=== PATIENT | female | born 1980 | race Caucasian/White ===

== ENCOUNTER 2018-10-14 18:17 | Inpatient (IN) | payer MEDICAID ==
[2018-10-14] MEDS ORDERED: MAGNESIUM SULFATE 4 GM/100 ML 100 ML (19:45)
[2018-10-14] MEDS ORDERED: CA GLUCONATE (GM) 10% 10ML INJ IV (20:00)
[2018-10-14] MEDS ORDERED: NACL 0.9% 3 ML SYG IV (20:00)
[2018-10-14] MEDS: MAGNESIUM SULFATE 4 GM/100 ML 100 ML IV (20:02)
[2018-10-14] MEDS: LACTATED RINGER'S 1,000 ML IV (20:04)
[2018-10-14] MEDS: MAGNESIUM SULFATE 20 GM/500 ML 500 ML IV (20:28)
[2018-10-14 20:29] LABS: ADD MAN DIFF? NO
[2018-10-14 20:33] LABS: WHITE BLOOD COUNT 10.1 10^3/ul (4.8-10.8)
[2018-10-14 20:33] LABS: ABNORMAL IP MESSAGE 1; BASOPHILS % 0.3 % (0.0-2.0); EOSINOPHILS # 0.2 10^3/ul (0.0-0.5); EOSINOPHILS % 1.5 % (0.0-7.0); HEMATOCRIT 31.2 % (37.0-47.0); HEMOGLOBIN 10.6 g/dl (12.0-16.0); LYMPHOCYTES % 20.1 % (15.0-51.0); MEAN CORPUSCULAR HEMOGLOBIN 29.5 pg (29.0-33.0); MEAN CORPUSCULAR VOLUME 86.9 fl (82.0-101.0); MEAN PLATELET VOLUME 13.3 fl (7.4-10.4); MONOCYTE # 0.8 10^3/ul (0.3-0.9); MONOCYTES % 7.8 % (0.0-11.0); NEUTROPHIL # 7.1 10^3/ul (1.6-7.5); NEUTROPHILS % 69.6 % (39.0-77.0); PLATELET COUNT 153 10^3/UL (140-415); RED BLOOD COUNT 3.59 10^6/ul (4.20-5.40); RED CELL DISTRIBUTION WIDTH 13.2 % (11.5-14.5)
[2018-10-14] MEDS: LABETALOL HCL 20MG INJ IV ×3 (20:34→21:12)
[2018-10-14 20:35] LABS: POSITIVE DIFF @See below
[2018-10-14] MEDS: BETAMET NA PHOS/AC(6 MG/ML) 2 ML INJ SYG IM (20:38)
[2018-10-14 20:50] LABS: ADD UMIC YES; UR ASCORBIC ACID NEGATIVE (NEGATIVE); UR BACTERIA FEW /HPF (NONE SEEN); UR BILIRUBIN (Dip) NEGATIVE (NEGATIVE); UR BLOOD (Dip) 1+ mg/dL (NEGATIVE); UR CLARITY CLOUDY (CLEAR); UR COLOR AMBER (YELLOW); UR GLUCOSE (Dip) 1+ mg/dL (NEGATIVE); UR KETONES (Dip) NEGATIVE (NEGATIVE); UR LEUKOCYTE ESTERASE (Dip) NEGATIVE Leu/ul (NEGATIVE); UR MUCUS FEW /HPF (NONE SEEN); UR NITRITE (Dip) NEGATIVE (NEGATIVE); UR NONSQUAMOUS EPITHELIAL CELL 1 /HPF (NONE SEEN); UR RBC 4 /HPF (0-5); UR SQUAMOUS EPITHELIAL CELL MANY /HPF (FEW); UR TOTAL PROTEIN (Dip) 3+ mg/dl (NEGATIVE); UR UROBILINOGEN (Dip) 1+ mg/dL (NEGATIVE); UR WBC 10 /HPF (0-5)
[2018-10-14 20:51] LABS: ALANINE AMINOTRANSFERASE 41 IU/L (13-69); ALBUMIN 2.7 g/dl (3.3-4.9); ALBUMIN/GLOBULIN RATIO 0.84; ALKALINE PHOSPHATASE 254 IU/L (42-121); ANION GAP 6 (5-13); ASPARTATE AMINO TRANSFERASE 42 IU/L (15-46); BILIRUBIN,INDIRECT 0.9 mg/dl (0-1.1); BILIRUBIN,TOTAL 0.9 mg/dl (0.2-1.3); BLOOD UREA NITROGEN 21 mg/dl (7-20); CALCIUM 8.3 mg/dl (8.4-10.2); CARBON DIOXIDE 21 mmol/L (21-31); CHLORIDE 104 mmol/L (97-110); Estimated GFR 50 mL/min (>60); GLUCOSE 83 mg/dl (70-220); POTASSIUM 4.4 mmol/L (3.5-5.1); SODIUM 131 mmol/L (135-144); TOTAL PROTEIN 5.9 g/dl (6.1-8.1); URIC ACID 8.3 mg/dl (3.1-7.9)
[2018-10-14 20:54] LABS: INR 0.83; PROTIME 11.5 Sec (11.9-14.9); PT RATIO 0.9
[2018-10-14 20:55] LABS: PARTIAL THROMBOPLASTIN TIME 30.4 Sec (23.0-35.0)
[2018-10-14 20:57] LABS: ALANINE AMINOTRANSFERASE 52 IU/L (13-69); ALBUMIN 2.4 g/dl (3.3-4.9); ALKALINE PHOSPHATASE 261 IU/L (42-121); ANION GAP 6 (5-13); ASPARTATE AMINO TRANSFERASE 43 IU/L (15-46); BLOOD UREA NITROGEN 21 mg/dl (7-20); CALCIUM 8.3 mg/dl (8.4-10.2); CARBON DIOXIDE 21 mmol/L (21-31); CHLORIDE 104 mmol/L (97-110); CREATININE 1.15 mg/dl (0.44-1.00); GLUCOSE 78 mg/dl (70-220); LACTATE DEHYDROGENASE 944 IU/L (313-618); PHOSPHORUS 5.8 mg/dl (2.5-4.9); POTASSIUM 4.5 mmol/L (3.5-5.1); SODIUM 131 mmol/L (135-144); TOTAL PROTEIN 5.2 g/dl (6.1-8.1)
[2018-10-14] MEDS: ONDANSETRON 4 MG INJ IV (21:59)
[2018-10-14] MEDS ORDERED: hydrALAzine 20 MG INJ IV (22:00)
[2018-10-14] MEDS ORDERED: LABETALOL HCL 20MG INJ IV ×2 (22:00)
[2018-10-14 23:34] LABS: MAGNESIUM 5.2 mg/dl (1.7-2.5)
[2018-10-15 00:43] LABS: ADD MAN DIFF? NO
[2018-10-15 00:50] LABS: WHITE BLOOD COUNT 12.1 10^3/ul (4.8-10.8)
[2018-10-15 00:50] LABS: ABNORMAL IP MESSAGE 1; BASOPHILS % 0.3 % (0.0-2.0); EOSINOPHILS % 0.2 % (0.0-7.0); HEMATOCRIT 31.7 % (37.0-47.0); HEMOGLOBIN 10.7 g/dl (12.0-16.0); LYMPHOCYTES # 1.3 10^3/ul (0.8-2.9); LYMPHOCYTES % 10.9 % (15.0-51.0); MEAN CORPUSCULAR HEMOGLOBIN 29.5 pg (29.0-33.0); MEAN CORPUSCULAR HGB CONC 33.8 g/dl (32.0-37.0); MEAN CORPUSCULAR VOLUME 87.3 fl (82.0-101.0); MEAN PLATELET VOLUME 13.1 fl (7.4-10.4); MONOCYTE # 0.3 10^3/ul (0.3-0.9); MONOCYTES % 2.4 % (0.0-11.0); NEUTROPHIL # 10.2 10^3/ul (1.6-7.5); NEUTROPHILS % 84.9 % (39.0-77.0); NUCLEATED RED BLOOD CELLS% 0.2 /100WBC (0.0-0.0); PLATELET COUNT 157 10^3/UL (140-415); POSITIVE DIFF @See below; RED BLOOD COUNT 3.63 10^6/ul (4.20-5.40); RED CELL DISTRIBUTION WIDTH 13.2 % (11.5-14.5)
[2018-10-15 01:16] LABS: ALANINE AMINOTRANSFERASE 59 IU/L (13-69); ALBUMIN 2.5 g/dl (3.3-4.9); ALBUMIN/GLOBULIN RATIO 0.75; ALKALINE PHOSPHATASE 296 IU/L (42-121); ANION GAP 5 (5-13); ASPARTATE AMINO TRANSFERASE 52 IU/L (15-46); BLOOD UREA NITROGEN 21 mg/dl (7-20); CALCIUM 8.1 mg/dl (8.4-10.2); CARBON DIOXIDE 20 mmol/L (21-31); CHLORIDE 104 mmol/L (97-110); CREATININE 1.16 mg/dl (0.44-1.00); Estimated GFR 52 mL/min (>60); GLUCOSE 109 mg/dl (70-220); POTASSIUM 4.4 mmol/L (3.5-5.1); SODIUM 129 mmol/L (135-144); TOTAL PROTEIN 5.8 g/dl (6.1-8.1); URIC ACID 8.5 mg/dl (3.1-7.9)
[2018-10-15 01:24] LABS: MAGNESIUM 5.6 mg/dl (1.7-2.5)
[2018-10-15] MEDS: DIPHENHYDRAMINE 50 MG CAP PO (01:28)
[2018-10-15] MEDS: ACETAMINOPHEN 500 MG TAB PO (01:28)
[2018-10-15] MEDS: LACTATED RINGER'S 1,000 ML IV ×2 (01:40→15:32)
[2018-10-15 04:12] LABS: ADD MAN DIFF? NO
[2018-10-15 04:13] LABS: WHITE BLOOD COUNT 12.2 10^3/ul (4.8-10.8)
[2018-10-15 04:13] LABS: BASOPHILS % 0.2 % (0.0-2.0); EOSINOPHILS % 0.1 % (0.0-7.0); HEMOGLOBIN 10.7 g/dl (12.0-16.0); LYMPHOCYTES # 1.1 10^3/ul (0.8-2.9); LYMPHOCYTES % 9.2 % (15.0-51.0); MEAN CORPUSCULAR HEMOGLOBIN 29.2 pg (29.0-33.0); MEAN CORPUSCULAR HGB CONC 33.4 g/dl (32.0-37.0); MEAN CORPUSCULAR VOLUME 87.2 fl (82.0-101.0); MEAN PLATELET VOLUME 12.8 fl (7.4-10.4); MONOCYTE # 0.1 10^3/ul (0.3-0.9); NEUTROPHIL # 10.8 10^3/ul (1.6-7.5); NEUTROPHILS % 87.9 % (39.0-77.0); NUCLEATED RED BLOOD CELLS% 0.2 /100WBC (0.0-0.0); PLATELET COUNT 151 10^3/UL (140-415); RED BLOOD COUNT 3.67 10^6/ul (4.20-5.40); RED CELL DISTRIBUTION WIDTH 13.2 % (11.5-14.5)
[2018-10-15 04:31] LABS: ALANINE AMINOTRANSFERASE 57 IU/L (13-69); ALBUMIN 2.8 g/dl (3.3-4.9); ALKALINE PHOSPHATASE 289 IU/L (42-121); ANION GAP 7 (5-13); ASPARTATE AMINO TRANSFERASE 51 IU/L (15-46); BILIRUBIN,INDIRECT 0.9 mg/dl (0-1.1); BILIRUBIN,TOTAL 0.9 mg/dl (0.2-1.3); BLOOD UREA NITROGEN 22 mg/dl (7-20); CARBON DIOXIDE 18 mmol/L (21-31); CHLORIDE 105 mmol/L (97-110); CREATININE 1.23 mg/dl (0.44-1.00); Estimated GFR 49 mL/min (>60); GLUCOSE 138 mg/dl (70-220); POTASSIUM 4.7 mmol/L (3.5-5.1); SODIUM 130 mmol/L (135-144); TOTAL PROTEIN 5.9 g/dl (6.1-8.1); URIC ACID 8.5 mg/dl (3.1-7.9)
[2018-10-15 04:37] LABS: MAGNESIUM 6.2 mg/dl (1.7-2.5)
[2018-10-15 06:43] LABS: ADD MAN DIFF? NO
[2018-10-15 06:47] LABS: BASOPHILS % 0.2 % (0.0-2.0); HEMATOCRIT 31.6 % (37.0-47.0); HEMOGLOBIN 10.8 g/dl (12.0-16.0); LYMPHOCYTES # 1.1 10^3/ul (0.8-2.9); LYMPHOCYTES % 9.2 % (15.0-51.0); MEAN CORPUSCULAR HEMOGLOBIN 29.9 pg (29.0-33.0); MEAN CORPUSCULAR HGB CONC 34.2 g/dl (32.0-37.0); MEAN CORPUSCULAR VOLUME 87.5 fl (82.0-101.0); MEAN PLATELET VOLUME 12.3 fl (7.4-10.4); MONOCYTE # 0.1 10^3/ul (0.3-0.9); MONOCYTES % 1.1 % (0.0-11.0); NEUTROPHIL # 10.8 10^3/ul (1.6-7.5); NEUTROPHILS % 87.6 % (39.0-77.0); PLATELET COUNT 154 10^3/UL (140-415); RED BLOOD COUNT 3.61 10^6/ul (4.20-5.40)
[2018-10-15 06:47] LABS: WHITE BLOOD COUNT 12.3 10^3/ul (4.8-10.8)
[2018-10-15 07:11] LABS: ALANINE AMINOTRANSFERASE 55 IU/L (13-69); ALBUMIN 2.5 g/dl (3.3-4.9); ALBUMIN/GLOBULIN RATIO 0.83; ALKALINE PHOSPHATASE 285 IU/L (42-121); ANION GAP 8 (5-13); ASPARTATE AMINO TRANSFERASE 52 IU/L (15-46); BLOOD UREA NITROGEN 22 mg/dl (7-20); CALCIUM 7.8 mg/dl (8.4-10.2); CARBON DIOXIDE 18 mmol/L (21-31); CHLORIDE 104 mmol/L (97-110); CREATININE 1.25 mg/dl (0.44-1.00); Estimated GFR 48 mL/min (>60); GLUCOSE 147 mg/dl (70-220); POTASSIUM 4.8 mmol/L (3.5-5.1); SODIUM 130 mmol/L (135-144); TOTAL PROTEIN 5.5 g/dl (6.1-8.1); URIC ACID 8.7 mg/dl (3.1-7.9)
[2018-10-15 07:17] LABS: MAGNESIUM 6.3 mg/dl (1.7-2.5)
[2018-10-15] MEDS: BETAMET NA PHOS/AC(6 MG/ML) 2 ML INJ SYG IM (08:36)
[2018-10-15] MEDS: CEFAZOLIN 2 GM/50 ML (PMX) 50 ML IVPB (10:30)
[2018-10-15] MEDS ORDERED: METHYLERGONOVINE 0.2 MG INJ IM ×2 (11:00→21:30)
[2018-10-15] MEDS ORDERED: CARBOPROST 250 MCG INJ IM ×2 (11:00→21:30)
[2018-10-15] MEDS ORDERED: OXYTOCIN 30 UNITS/LR 500 ML IV ×3 (11:00→21:30)
[2018-10-15] MEDS ORDERED: MISOPROSTOL 200 MCG TAB PR ×2 (11:00→21:30)
[2018-10-15 11:12] LABS: MAGNESIUM 6.7 mg/dl (1.7-2.5)
[2018-10-15 11:28] LABS: ADD MAN DIFF? NO
[2018-10-15 11:30] LABS: WHITE BLOOD COUNT 12.8 10^3/ul (4.8-10.8)
[2018-10-15 11:30] LABS: BASOPHILS % 0.1 % (0.0-2.0); HEMATOCRIT 33.6 % (37.0-47.0); HEMOGLOBIN 11.5 g/dl (12.0-16.0); LYMPHOCYTES # 1.3 10^3/ul (0.8-2.9); LYMPHOCYTES % 10.1 % (15.0-51.0); MEAN CORPUSCULAR HEMOGLOBIN 29.5 pg (29.0-33.0); MEAN CORPUSCULAR HGB CONC 34.2 g/dl (32.0-37.0); MEAN CORPUSCULAR VOLUME 86.2 fl (82.0-101.0); MEAN PLATELET VOLUME 12.5 fl (7.4-10.4); MONOCYTE # 0.1 10^3/ul (0.3-0.9); MONOCYTES % 0.8 % (0.0-11.0); NEUTROPHIL # 11.2 10^3/ul (1.6-7.5); NEUTROPHILS % 87.1 % (39.0-77.0); PLATELET COUNT 174 10^3/UL (140-415); RED CELL DISTRIBUTION WIDTH 13.3 % (11.5-14.5)
[2018-10-15 11:50] LABS: INR 0.83; PROTIME 11.5 Sec (11.9-14.9); PT RATIO 0.9
[2018-10-15 11:51] LABS: PARTIAL THROMBOPLASTIN TIME 28.7 Sec (23.0-35.0)
[2018-10-15 11:55] LABS: MAGNESIUM 6.7 mg/dl (1.7-2.5)
[2018-10-15] MEDS ORDERED: OXYTOCIN 10 UNIT INJ (11:56)
[2018-10-15] MEDS ORDERED: FENTAnyl 50 MCG/ML VIAL (11:56)
[2018-10-15] MEDS ORDERED: morphine SULFATE/PF (10 MG/10 ML) INJ (11:57)
[2018-10-15 12:41] LABS: HEPATITIS B SURFACE ANTIGEN NEGATIVE (NEGATIVE)
[2018-10-15] MEDS ORDERED: EPHEDrine 25 MG/5 ML SYG (12:44)
[2018-10-15 13:06] LABS: CBV Base Excess -7.4 mmol/L; CBV COHb 0.3 %; CBV Total Hemglobin 18.9 g/dl; Cord Blood Venous pO2 13.7 mmHG (15.0-45.0); Fraction OxyHgb Cord Venous 10.6 %; MODE ROOM AIR; MetHgb Cord Venous 1.9 %; Sample Type CBV; Site CORD
[2018-10-15] MEDS: MISOPROSTOL 200 MCG TAB PO (13:17)
[2018-10-15] MEDS: hydrALAzine 20 MG INJ IV (14:11)
[2018-10-15 15:14] LABS: MAGNESIUM 6.6 mg/dl (1.7-2.5)
[2018-10-15] MEDS: MAGNESIUM SULFATE 20 GM/500 ML 500 ML IV (15:27)
[2018-10-15] MEDS: NIFEdipine (XL) 30 MG TAB PO (15:28)
[2018-10-15] MEDS: LACTATED RINGER'S 250 ML IV (16:30)
[2018-10-15 16:40] LABS: MAGNESIUM 6.7 mg/dl (1.7-2.5)
[2018-10-15 18:25] LABS: RAPID PLASMA REAGIN NONREACTIVE (NR)
[2018-10-15 18:27] LABS: ADD MAN DIFF? NO
[2018-10-15 18:30] LABS: WHITE BLOOD COUNT 18.6 10^3/ul (4.8-10.8)
[2018-10-15 18:30] LABS: BASOPHILS % 0.1 % (0.0-2.0); HEMATOCRIT 32.1 % (37.0-47.0); HEMOGLOBIN 10.7 g/dl (12.0-16.0); LYMPHOCYTES # 1.2 10^3/ul (0.8-2.9); LYMPHOCYTES % 6.6 % (15.0-51.0); MEAN CORPUSCULAR HEMOGLOBIN 29.2 pg (29.0-33.0); MEAN CORPUSCULAR HGB CONC 33.3 g/dl (32.0-37.0); MEAN CORPUSCULAR VOLUME 87.5 fl (82.0-101.0); MONOCYTE # 0.7 10^3/ul (0.3-0.9); MONOCYTES % 3.9 % (0.0-11.0); NEUTROPHIL # 16.4 10^3/ul (1.6-7.5); NEUTROPHILS % 88.3 % (39.0-77.0); PLATELET COUNT 185 10^3/UL (140-415); RED BLOOD COUNT 3.67 10^6/ul (4.20-5.40); RED CELL DISTRIBUTION WIDTH 13.4 % (11.5-14.5)
[2018-10-15 18:51] LABS: ALANINE AMINOTRANSFERASE 58 IU/L (13-69); ALBUMIN 2.5 g/dl (3.3-4.9); ALBUMIN/GLOBULIN RATIO 0.89; ALKALINE PHOSPHATASE 253 IU/L (42-121); ANION GAP 6 (5-13); ASPARTATE AMINO TRANSFERASE 52 IU/L (15-46); BILIRUBIN,INDIRECT 0.7 mg/dl (0-1.1); BILIRUBIN,TOTAL 0.7 mg/dl (0.2-1.3); BLOOD UREA NITROGEN 24 mg/dl (7-20); CALCIUM 7.5 mg/dl (8.4-10.2); CARBON DIOXIDE 20 mmol/L (21-31); CHLORIDE 103 mmol/L (97-110); CREATININE 1.29 mg/dl (0.44-1.00); Estimated GFR 46 mL/min (>60); GLUCOSE 127 mg/dl (70-220); SODIUM 129 mmol/L (135-144); TOTAL PROTEIN 5.3 g/dl (6.1-8.1); URIC ACID 8.8 mg/dl (3.1-7.9)
[2018-10-15 18:53] LABS: MAGNESIUM 6.8 mg/dl (1.7-2.5)
[2018-10-15 18:54] LABS: INR 0.89; PROTIME 12.1 Sec (11.9-14.9); PT RATIO 0.9
[2018-10-15 18:55] LABS: PARTIAL THROMBOPLASTIN TIME 26.6 Sec (23.0-35.0)
[2018-10-15] MEDS: DEXTROSE 5%-LR 1,000 ML IV (21:26)
[2018-10-15] MEDS: OXYTOCIN 30 UNITS/LR 500 ML IV (21:26)
[2018-10-15] MEDS ORDERED: MAGNESIUM HYDROXIDE 30ML CUP PO (21:30)
[2018-10-15] MEDS ORDERED: METHYLERGONOVINE 0.2 MG TAB PO (21:30)
[2018-10-15] MEDS ORDERED: morphine 2 MG INJ IV ×2 (22:00)
[2018-10-15] MEDS ORDERED: ONDANSETRON 4 MG INJ IV (22:00)
[2018-10-15] MEDS ORDERED: TRIMETHOBENZAMIDE 100 MG/ML VIAL IM (22:00)
[2018-10-15] MEDS ORDERED: NALBUPHINE HCL (10 MG/1 ML) INJ IV (22:00)
[2018-10-15] MEDS: IBUPROFEN 800 MG TAB PO (22:00)
[2018-10-15] MEDS ORDERED: NALOXONE (0.4 MG/ML) INJ IV (22:00)
[2018-10-15] MEDS: DIPHENHYDRAMINE 50 MG INJ IV (23:07)
[2018-10-16] MEDS: LACTATED RINGER'S 1,000 ML IV ×3 (00:34→21:12)
[2018-10-16 01:45] LABS: MAGNESIUM 6.5 mg/dl (1.7-2.5)
[2018-10-16] MEDS: DEXTROSE 5%-LR 1,000 ML IV ×3 (05:26→21:26)
[2018-10-16] MEDS: IBUPROFEN 800 MG TAB PO ×3 (06:00→21:16)
[2018-10-16 06:34] LABS: ADD MAN DIFF? NO
[2018-10-16 06:37] LABS: BASOPHILS % 0.1 % (0.0-2.0); HEMATOCRIT 28.1 % (37.0-47.0); HEMOGLOBIN 9.3 g/dl (12.0-16.0); LYMPHOCYTES # 1.7 10^3/ul (0.8-2.9); LYMPHOCYTES % 9.8 % (15.0-51.0); MEAN CORPUSCULAR HGB CONC 33.1 g/dl (32.0-37.0); MEAN CORPUSCULAR VOLUME 87.5 fl (82.0-101.0); MEAN PLATELET VOLUME 12.6 fl (7.4-10.4); MONOCYTE # 0.9 10^3/ul (0.3-0.9); MONOCYTES % 4.9 % (0.0-11.0); NEUTROPHILS % 84.2 % (39.0-77.0); NUCLEATED RED BLOOD CELLS% 0.1 /100WBC (0.0-0.0); PLATELET COUNT 181 10^3/UL (140-415); RED BLOOD COUNT 3.21 10^6/ul (4.20-5.40); RED CELL DISTRIBUTION WIDTH 13.4 % (11.5-14.5)
[2018-10-16 06:37] LABS: WHITE BLOOD COUNT 17.8 10^3/ul (4.8-10.8)
[2018-10-16 06:55] LABS: PROTIME 11.2 Sec (11.9-14.9); PT RATIO 0.9
[2018-10-16 06:56] LABS: PARTIAL THROMBOPLASTIN TIME 25.9 Sec (23.0-35.0)
[2018-10-16 06:59] LABS: MAGNESIUM 6.2 mg/dl (1.7-2.5)
[2018-10-16 07:04] LABS: ALANINE AMINOTRANSFERASE 62 IU/L (13-69); ALBUMIN 2.4 g/dl (3.3-4.9); ALBUMIN/GLOBULIN RATIO 0.85; ALKALINE PHOSPHATASE 209 IU/L (42-121); ANION GAP 5 (5-13); ASPARTATE AMINO TRANSFERASE 51 IU/L (15-46); BILIRUBIN,INDIRECT 0.6 mg/dl (0-1.1); BILIRUBIN,TOTAL 0.6 mg/dl (0.2-1.3); BLOOD UREA NITROGEN 25 mg/dl (7-20); CARBON DIOXIDE 20 mmol/L (21-31); CHLORIDE 102 mmol/L (97-110); CREATININE 1.05 mg/dl (0.44-1.00); Estimated GFR 59 mL/min (>60); GLUCOSE 105 mg/dl (70-220); POTASSIUM 4.8 mmol/L (3.5-5.1); SODIUM 127 mmol/L (135-144); TOTAL PROTEIN 5.2 g/dl (6.1-8.1); URIC ACID 8.8 mg/dl (3.1-7.9)
[2018-10-16] MEDS: NIFEdipine (XL) 30 MG TAB PO (09:11)
[2018-10-16] MEDS: SENNA/DOCUSATE NA (8.6MG/50MG) TAB PO ×2 (09:11→21:12)
[2018-10-16] MEDS: hydrALAzine 20 MG INJ IV (10:28)
[2018-10-16] MEDS ORDERED: DIPHTH/TET/ACEL PERTUSS (ADULT) 0.5 ML VIAL IM* (11:00)
[2018-10-16] MEDS: KETOROLAC 30 MG INJ IV (11:39)
[2018-10-16] MEDS: LABETALOL 100 MG TAB PO (11:48)
[2018-10-16 12:48] LABS: MAGNESIUM 5.9 mg/dl (1.7-2.5)
[2018-10-16] MEDS: MAGNESIUM SULFATE 20 GM/500 ML 500 ML IV (13:04)
[2018-10-16] MEDS: HYDROCODONE/APAP (5/325) TAB PO ×2 (14:00→21:16)
[2018-10-16] MEDS: LABETALOL 200 MG TAB PO ×2 (19:24→21:15)
[2018-10-16 19:29] LABS: MAGNESIUM 5.9 mg/dl (1.7-2.5)
[2018-10-17 03:41] LABS: MAGNESIUM 6.1 mg/dl (1.7-2.5)
[2018-10-17] MEDS: MAGNESIUM SULFATE 20 GM/500 ML 500 ML IV (04:30)
[2018-10-17] MEDS: DEXTROSE 5%-LR 1,000 ML IV (05:26)
[2018-10-17] MEDS: HYDROCODONE/APAP (5/325) TAB PO ×4 (06:00→21:46)
[2018-10-17] MEDS: IBUPROFEN 800 MG TAB PO ×3 (06:03→21:46)
[2018-10-17] MEDS: LACTATED RINGER'S 1,000 ML IV (07:01)
[2018-10-17] MEDS: SENNA/DOCUSATE NA (8.6MG/50MG) TAB PO ×2 (08:51→21:21)
[2018-10-17] MEDS: LABETALOL 200 MG TAB PO ×2 (08:52→21:21)
[2018-10-17] MEDS: NIFEdipine (XL) 60 MG TAB PO (08:52)
[2018-10-17 08:56] LABS: ADD MAN DIFF? NO
[2018-10-17 09:06] LABS: BASOPHILS % 0.1 % (0.0-2.0); EOSINOPHILS % 0.2 % (0.0-7.0); HEMATOCRIT 24.2 % (37.0-47.0); LYMPHOCYTES # 1.7 10^3/ul (0.8-2.9); LYMPHOCYTES % 14.2 % (15.0-51.0); MEAN CORPUSCULAR HEMOGLOBIN 29.6 pg (29.0-33.0); MEAN CORPUSCULAR HGB CONC 33.1 g/dl (32.0-37.0); MEAN CORPUSCULAR VOLUME 89.6 fl (82.0-101.0); MEAN PLATELET VOLUME 12.3 fl (7.4-10.4); MONOCYTE # 0.8 10^3/ul (0.3-0.9); MONOCYTES % 6.4 % (0.0-11.0); NEUTROPHIL # 9.1 10^3/ul (1.6-7.5); NEUTROPHILS % 77.6 % (39.0-77.0); NUCLEATED RED BLOOD CELLS% 0.3 /100WBC (0.0-0.0); PLATELET COUNT 164 10^3/UL (140-415); RED CELL DISTRIBUTION WIDTH 13.5 % (11.5-14.5)
[2018-10-17 09:06] LABS: WHITE BLOOD COUNT 11.7 10^3/ul (4.8-10.8)
[2018-10-17 09:31] LABS: ALANINE AMINOTRANSFERASE 77 IU/L (13-69); ALKALINE PHOSPHATASE 182 IU/L (42-121); ANION GAP 2 (5-13); ASPARTATE AMINO TRANSFERASE 54 IU/L (15-46); BILIRUBIN,INDIRECT 0.5 mg/dl (0-1.1); BILIRUBIN,TOTAL 0.5 mg/dl (0.2-1.3); BLOOD UREA NITROGEN 24 mg/dl (7-20); CALCIUM 6.3 mg/dl (8.4-10.2); CARBON DIOXIDE 25 mmol/L (21-31); CHLORIDE 101 mmol/L (97-110); Estimated GFR > 60 mL/min (>60); GLUCOSE 89 mg/dl (70-220); POTASSIUM 4.6 mmol/L (3.5-5.1); SODIUM 128 mmol/L (135-144); TOTAL PROTEIN 4.5 g/dl (6.1-8.1); URIC ACID 7.5 mg/dl (3.1-7.9)
[2018-10-18] MEDS: HYDROCODONE/APAP (5/325) TAB PO ×3 (06:00→22:45)
[2018-10-18] MEDS: IBUPROFEN 800 MG TAB PO ×3 (06:08→22:10)
[2018-10-18] MEDS: SENNA/DOCUSATE NA (8.6MG/50MG) TAB PO ×2 (08:36→20:53)
[2018-10-18] MEDS: LABETALOL 200 MG TAB PO ×2 (08:37→20:53)
[2018-10-18] MEDS: NIFEdipine (XL) 60 MG TAB PO (08:37)
[2018-10-18] MEDS: LANOLIN HPA 1 PKT TOP (11:43)
[2018-10-18] MEDS: MEASLES,MUMPS,RUBELLA VACCINE INJ SC* (12:33)
[2018-10-18] MEDS: DIPHTH/TET/ACEL PERTUSS (ADULT) 0.5 ML VIAL IM* (14:39)
[2018-10-19] MEDS: IBUPROFEN 800 MG TAB PO ×3 (05:39→21:20)
[2018-10-19] MEDS: HYDROCODONE/APAP (5/325) TAB PO ×3 (06:00→21:21)
[2018-10-19] MEDS: SENNA/DOCUSATE NA (8.6MG/50MG) TAB PO ×2 (09:31→21:20)
[2018-10-19] MEDS: NIFEdipine (XL) 60 MG TAB PO (09:34)
[2018-10-19] MEDS: LABETALOL 200 MG TAB PO ×2 (09:34→21:22)
[2018-10-19 11:59] LABS: ADD MAN DIFF? NO
[2018-10-19 12:16] LABS: BASOPHILS % 0.2 % (0.0-2.0); EOSINOPHILS # 0.2 10^3/ul (0.0-0.5); EOSINOPHILS % 2.1 % (0.0-7.0); HEMOGLOBIN 8.1 g/dl (12.0-16.0); LYMPHOCYTES # 1.8 10^3/ul (0.8-2.9); LYMPHOCYTES % 16.6 % (15.0-51.0); MEAN CORPUSCULAR HEMOGLOBIN 29.6 pg (29.0-33.0); MEAN CORPUSCULAR HGB CONC 32.4 g/dl (32.0-37.0); MEAN CORPUSCULAR VOLUME 91.2 fl (82.0-101.0); MEAN PLATELET VOLUME 11.4 fl (7.4-10.4); MONOCYTE # 0.7 10^3/ul (0.3-0.9); MONOCYTES % 6.7 % (0.0-11.0); NEUTROPHIL # 7.9 10^3/ul (1.6-7.5); NEUTROPHILS % 71.9 % (39.0-77.0); NUCLEATED RED BLOOD CELLS% 0.3 /100WBC (0.0-0.0); PLATELET COUNT 178 10^3/UL (140-415); RED BLOOD COUNT 2.74 10^6/ul (4.20-5.40)
[2018-10-19 12:22] LABS: ALANINE AMINOTRANSFERASE 137 IU/L (13-69); ALBUMIN 2.4 g/dl (3.3-4.9); ALBUMIN/GLOBULIN RATIO 0.85; ALKALINE PHOSPHATASE 161 IU/L (42-121); ANION GAP 3 (5-13); ASPARTATE AMINO TRANSFERASE 89 IU/L (15-46); BILIRUBIN,INDIRECT 0.5 mg/dl (0-1.1); BILIRUBIN,TOTAL 0.5 mg/dl (0.2-1.3); BLOOD UREA NITROGEN 13 mg/dl (7-20); CALCIUM 8.1 mg/dl (8.4-10.2); CARBON DIOXIDE 25 mmol/L (21-31); CHLORIDE 107 mmol/L (97-110); CREATININE 0.67 mg/dl (0.44-1.00); Estimated GFR > 60 mL/min (>60); GLUCOSE 86 mg/dl (70-220); POTASSIUM 3.8 mmol/L (3.5-5.1); SODIUM 135 mmol/L (135-144); TOTAL PROTEIN 5.2 g/dl (6.1-8.1)
[2018-10-19 12:26] LABS: PT RATIO 0.9
[2018-10-19 13:54] LABS: INR 0.77; PROTIME 10.9 Sec (11.9-14.9)
[2018-10-20] MEDS: IBUPROFEN 800 MG TAB PO ×2 (06:00→14:18)
[2018-10-20] MEDS: HYDROCODONE/APAP (5/325) TAB PO ×2 (06:00→14:18)
[2018-10-20 08:19] LABS: ADD MAN DIFF? NO
[2018-10-20 08:26] LABS: BASOPHIL # 0.1 10^3/ul (0.0-0.1); BASOPHILS % 0.5 % (0.0-2.0); EOSINOPHILS # 0.4 10^3/ul (0.0-0.5); EOSINOPHILS % 3.2 % (0.0-7.0); HEMATOCRIT 27.7 % (37.0-47.0); HEMOGLOBIN 8.9 g/dl (12.0-16.0); LYMPHOCYTES # 1.9 10^3/ul (0.8-2.9); LYMPHOCYTES % 17.5 % (15.0-51.0); MEAN CORPUSCULAR HEMOGLOBIN 29.3 pg (29.0-33.0); MEAN CORPUSCULAR HGB CONC 32.1 g/dl (32.0-37.0); MEAN CORPUSCULAR VOLUME 91.1 fl (82.0-101.0); MEAN PLATELET VOLUME 10.6 fl (7.4-10.4); MONOCYTE # 0.7 10^3/ul (0.3-0.9); MONOCYTES % 6.4 % (0.0-11.0); NEUTROPHIL # 7.6 10^3/ul (1.6-7.5); PLATELET COUNT 173 10^3/UL (140-415); RED BLOOD COUNT 3.04 10^6/ul (4.20-5.40); RED CELL DISTRIBUTION WIDTH 13.9 % (11.5-14.5)
[2018-10-20] MEDS: SENNA/DOCUSATE NA (8.6MG/50MG) TAB PO (08:49)
[2018-10-20] MEDS: LABETALOL 200 MG TAB PO (08:49)
[2018-10-20] MEDS: NIFEdipine (XL) 60 MG TAB PO (08:50)
[2018-10-20 08:51] LABS: ALANINE AMINOTRANSFERASE 128 IU/L (13-69); ALBUMIN 2.9 g/dl (3.3-4.9); ALKALINE PHOSPHATASE 176 IU/L (42-121); ASPARTATE AMINO TRANSFERASE 67 IU/L (15-46); BILIRUBIN,INDIRECT 0.8 mg/dl (0-1.1); BILIRUBIN,TOTAL 0.8 mg/dl (0.2-1.3)
[2018-10-20 08:54] LABS: ALANINE AMINOTRANSFERASE 127 IU/L (13-69); ALBUMIN 2.7 g/dl (3.3-4.9); ALBUMIN/GLOBULIN RATIO 0.96; ALKALINE PHOSPHATASE 178 IU/L (42-121); ANION GAP 5 (5-13); ASPARTATE AMINO TRANSFERASE 67 IU/L (15-46); BILIRUBIN,INDIRECT 0.8 mg/dl (0-1.1); BILIRUBIN,TOTAL 0.8 mg/dl (0.2-1.3); BLOOD UREA NITROGEN 12 mg/dl (7-20); CALCIUM 8.3 mg/dl (8.4-10.2); CARBON DIOXIDE 24 mmol/L (21-31); CHLORIDE 106 mmol/L (97-110); Estimated GFR > 60 mL/min (>60); GLUCOSE 75 mg/dl (70-220); POTASSIUM 4.3 mmol/L (3.5-5.1); SODIUM 135 mmol/L (135-144); TOTAL PROTEIN 5.5 g/dl (6.1-8.1)
[2018-10-20 16:55] LABS: CHENODEOXYCHOLIC ACID 58.8 umol/L (< OR = 3.1); CHOLIC ACID 162.7 umol/L (< OR = 1.8); DEOXYCHOLIC ACID 4.9 umol/L (< OR = 2.4); TOTAL BILE ACIDS 226.4 umol/L (< OR = 6.8)
== END 2018-10-20 16:30 | disposition home or self-care (01) | DRG 786 ==
LOC: OBT 18:17 → L-D 18:19 → OBT 19:41 → L-D 10-15 11:17 → PP1 10-15 18:57 → L-D 10-15 19:27 → PP1 10-15 20:37
PROC: 10D00Z1 Extraction of Products of Conception, Low, Open Approach (ICD-10-PCS; principal; 2018-10-15)
DX: O14.13 Severe pre-eclampsia, third trimester (principal); O45.93 Premature separation of placenta, unspecified, third trimester; Z3A.28 28 weeks gestation of pregnancy; Z37.0 Single live birth
CPT/HCPCS: 36415; 76705; 76815; 76818; 80053; 80069; 80076; 81001; 82803; 83615; 83735; 83789; 84560; 85025; 85384; 85610; 85730; 86592; 86850; 86900; 86901; 87340; 88307; 90715; 99464

== ENCOUNTER 2018-10-29 14:01 | Inpatient (IN) | payer MEDICAID ==
[2018-10-29 14:45] LABS: ADD MAN DIFF? NO
[2018-10-29 14:47] LABS: BASOPHILS % 0.7 % (0.0-2.0); EOSINOPHILS # 0.3 10^3/ul (0.0-0.5); EOSINOPHILS % 4.5 % (0.0-7.0); HEMATOCRIT 30.7 % (37.0-47.0); LYMPHOCYTES # 1.7 10^3/ul (0.8-2.9); LYMPHOCYTES % 27.9 % (15.0-51.0); MEAN CORPUSCULAR HEMOGLOBIN 28.8 pg (29.0-33.0); MEAN CORPUSCULAR HGB CONC 32.6 g/dl (32.0-37.0); MEAN CORPUSCULAR VOLUME 88.5 fl (82.0-101.0); MONOCYTE # 0.5 10^3/ul (0.3-0.9); MONOCYTES % 7.8 % (0.0-11.0); NEUTROPHIL # 3.5 10^3/ul (1.6-7.5); NEUTROPHILS % 58.8 % (39.0-77.0); PLATELET COUNT 239 10^3/UL (140-415); RED BLOOD COUNT 3.47 10^6/ul (4.20-5.40); RED CELL DISTRIBUTION WIDTH 13.7 % (11.5-14.5)
[2018-10-29 14:54] LABS: ADD UMIC YES; UR ASCORBIC ACID NEGATIVE (NEGATIVE); UR BILIRUBIN (Dip) NEGATIVE (NEGATIVE); UR BLOOD (Dip) 3+ mg/dL (NEGATIVE); UR CLARITY CLEAR (CLEAR); UR COLOR STRAW (YELLOW); UR GLUCOSE (Dip) NEGATIVE (NEGATIVE); UR KETONES (Dip) NEGATIVE (NEGATIVE); UR LEUKOCYTE ESTERASE (Dip) NEGATIVE Leu/ul (NEGATIVE); UR NITRITE (Dip) NEGATIVE (NEGATIVE); UR RBC 0 /HPF (0-5); UR SPECIFIC GRAVITY (Dip) 1.004 (1.003-1.030); UR TOTAL PROTEIN (Dip) 1+ mg/dl (NEGATIVE); UR UROBILINOGEN (Dip) NEGATIVE (NEGATIVE); UR WBC 2 /HPF (0-5)
[2018-10-29 15:07] LABS: INR 0.89; PROTIME 12.2 Sec (11.9-14.9)
[2018-10-29 15:08] LABS: ALANINE AMINOTRANSFERASE 79 IU/L (13-69); ALBUMIN 3.8 g/dl (3.3-4.9); ALBUMIN/GLOBULIN RATIO 1.08; ALKALINE PHOSPHATASE 289 IU/L (42-121); ANION GAP 6 (5-13); ASPARTATE AMINO TRANSFERASE 48 IU/L (15-46); BILIRUBIN,INDIRECT 0.7 mg/dl (0-1.1); BILIRUBIN,TOTAL 0.7 mg/dl (0.2-1.3); BLOOD UREA NITROGEN 13 mg/dl (7-20); CALCIUM 8.9 mg/dl (8.4-10.2); CARBON DIOXIDE 26 mmol/L (21-31); CHLORIDE 104 mmol/L (97-110); CREATININE 0.75 mg/dl (0.44-1.00); Estimated GFR > 60 mL/min (>60); GLUCOSE 96 mg/dl (70-220); PARTIAL THROMBOPLASTIN TIME 29.6 Sec (23.0-35.0); POTASSIUM 3.5 mmol/L (3.5-5.1); SODIUM 136 mmol/L (135-144); TOTAL PROTEIN 7.3 g/dl (6.1-8.1)
[2018-10-29] MEDS: MAGNESIUM SULFATE 4 GM/100 ML 100 ML IV (16:25)
[2018-10-29] MEDS: LABETALOL HCL 20MG INJ IV (16:39)
[2018-10-29] MEDS: LACTATED RINGER'S 1,000 ML IV (16:39)
[2018-10-29] MEDS: MAGNESIUM SULFATE 40GM/1000ML 1,000 ML IV (16:57)
[2018-10-29] MEDS: NIFEdipine (XL) 30 MG TAB PO (18:11)
[2018-10-29 19:21] LABS: MAGNESIUM 5.1 mg/dl (1.7-2.5)
[2018-10-30] MEDS ORDERED: ACETAMINOPHEN 325 MG TAB PO (03:30)
[2018-10-30] MEDS: ACETAMINOPHEN 500 MG TAB PO (04:01)
[2018-10-30] MEDS: LACTATED RINGER'S 1,000 ML IV ×2 (05:50→09:15)
[2018-10-30] MEDS: ACETAMINOPHEN 1000MG/100ML IV 100 ML IVPB (06:08)
[2018-10-30] MEDS ORDERED: CA GLUCONATE (GM) 10% 10ML INJ IV (08:30)
[2018-10-30] MEDS: NIFEdipine (XL) 30 MG TAB PO ×2 (09:14→20:49)
[2018-10-30 10:10] LABS: MAGNESIUM 5.7 mg/dl (1.7-2.5)
[2018-10-30] MEDS: MAGNESIUM SULFATE 40GM/1000ML 1,000 ML IV (15:37)
[2018-10-30 16:04] LABS: MAGNESIUM 5.7 mg/dl (1.7-2.5)
[2018-10-31] MEDS: NIFEdipine (XL) 30 MG TAB PO (09:11)
== END 2018-10-31 12:30 | disposition home or self-care (01) ==
LOC: OBT 14:01 → PP1 10-30 03:10 → L-D 14:01 → OBT 15:40 → L-D 15:40
DX: O13.5 Gestational [pregnancy-induced] hypertension without significant proteinuria, complicating the puerperium (principal); Z87.59 Personal history of other complications of pregnancy, childbirth and the puerperium
CPT/HCPCS: 80053; 81001; 83735; 84560; 85025; 85384; 85610; 85730